=== PATIENT | female | born 1965 | race Caucasian/White ===

== ENCOUNTER 2017-01-13 12:04 | Emergency (ER) | payer OTHER ==
[~2017-01-13] VITALS: Ht 149.9 cm; Wt 66.0 kg
[~2017-01-13 12:04] MED LIST: ALLEGRA60 MG PO; CALAN120 MG OR; CIPROFLOXACN500 MG PO; FIBER SELECT GUMMIES PO; FLAGYL500 MG PO; FLONASE NASAL50 MCG NAB; LEVAQUIN500 MG; LEXAPRO5 MG PO; LOPRESSOR50 MG; LORTAB 1010 MG PO; MEDROXYPROGESTER5 MG PO; METO50TA52 PO; METRONIDAZOL500 MG PO; PAXIL10 MG OR; SIMVASTATIN20 MG PO; STRESS B COMPLE PO; XANAX0.25 MG PO; ZOCOR20 M1 PO; ZOFRAN ODT4 MG PO; [UNRECOGNIZED DRUG - OTHER]
[2017-01-13] MEDS ORDERED: CEPHALEXIN500 M1 PO (13:21)
[2017-01-13 13:30] VITALS: BP 156/92
== END 2017-01-13 13:30 | disposition home or self-care (01) | DRG 605 ==
LOC: ED 12:04
PROC: 0HQGXZZ Repair Left Hand Skin, External Approach (ICD-10-PCS; principal; 2017-01-13)
DX: S61.215A Laceration without foreign body of left ring finger without damage to nail, initial encounter (principal); E78.5 Hyperlipidemia, unspecified; I10 Essential (primary) hypertension; F32.9 Major depressive disorder, single episode, unspecified; W26.0XXA Contact with knife, initial encounter; Y93.89 Activity, other specified; Y92.000 Kitchen of unspecified non-institutional (private) residence as the place of occurrence of the external cause

== ENCOUNTER 2018-07-24 12:51 | Emergency (ER) | payer OTHER ==
[~2018-07-24] VITALS: Ht 149.9 cm; Wt 68.0 kg
[~2018-07-24 12:51] MED LIST changes: +CEPHALEXIN500 M1 PO
[2018-07-24 13:52] LABS: HEMATOCRIT 42.8 % (37.0-47.0); HEMOGLOBIN 14.7 g/dl (12.0-16.0); IMMATURE GRANULOCYTES 2.2 % (0.0-5.0); MEAN CELL VOLUME 84.9 fL CALC (80.0-100.0); MEAN CORPUSCULAR HGB 29.2 pG CALC (26.0-32.0); MEAN CORPUSCULAR HGB CONC 34.3 g/L CALC (32.0-36.0); NEUT# 13.4 thou/uL (2.00-7.15); RED BLOOD COUNT 5.04 mill/uL (4.20-5.60); RED CELL DISTRI WIDTH 12.5 % (11.5-15.5)
[2018-07-24] MEDS ORDERED: TAMOXIFEN CITRA10 MG PO (13:54)
[2018-07-24 14:06] LABS: ALBUMIN 4.3 g/dL (3.2-5.0); ALKALINE PHOSPHATASE 56 u/l (38-126); BILIRUBIN, TOTAL 0.5 mg/dL (0.0-1.4); BUN 11 mg/dL (7-17); BUN/CREATININE RATIO 17 (12-20 (CALC)); CHLORIDE 104 mmol/l (95-108); CREATININE 0.6 mg/dL (0.5-1.0); GFR > 60 ML/MIN (>=60 (CALC)); GFR FOR AFR.AMER. > 60 ML/MIN (>=60 (CALC)); POTASSIUM 4.2 mmol/l (3.5-5.1); SGOT/AST 26 u/l (14-36); SODIUM 139 mmol/l (137-146); TOTAL PROTEIN 7.1 g/dL (6.3-8.2)
[2018-07-24 14:10] LABS: ANION GAP 17 (6-22 (CALC)); CARBON DIOXIDE 22 mmol/l (22-30)
[2018-07-24] MEDS ORDERED: METRONIDAZOL500 MG PO (17:53)
[2018-07-24] MEDS ORDERED: BENTYL10 MG PO (17:53)
[2018-07-24] MEDS ORDERED: TORADOL PO (17:53)
[2018-07-24] MEDS ORDERED: CIPROFLOXACN500 MG PO (17:53)
[2018-07-24 17:59] VITALS: BP 156/70
== END 2018-07-24 18:08 | disposition home or self-care (01) | DRG 392 ==
LOC: ED 12:51
PROVIDERS: Emergency Medicine
DX: K57.32 Diverticulitis of large intestine without perforation or abscess without bleeding (principal); R11.2 Nausea with vomiting, unspecified; R50.9 Fever, unspecified

== ENCOUNTER 2021-07-30 08:38 | Day surgery (SDC) | payer OTHER ==
[~2021-07-30] VITALS: Ht 149.9 cm; Wt 66.7 kg
[~2021-07-30 08:38] MED LIST changes: +BENTYL10 MG PO; +MULTI VIT PO; +TAMOXIFEN CITRA10 MG PO; +TORADOL PO; +VITAMIN B-12500 MCG PO
[2021-07-30 11:18] VITALS: BP 137/75
== END 2021-07-30 11:36 | disposition home or self-care (01) | DRG 951 ==
LOC: ENDO 08:38 → ORM 11:00 → ENDO 11:36
PROVIDERS: ATTEND Surgery
PROC: 0DJD8ZZ Inspection of Lower Intestinal Tract, Via Natural or Artificial Opening Endoscopic (ICD-10-PCS; principal; 2021-07-30)
DX: Z12.11 Encounter for screening for malignant neoplasm of colon (principal); K57.30 Diverticulosis of large intestine without perforation or abscess without bleeding; I10 Essential (primary) hypertension; E78.5 Hyperlipidemia, unspecified; Z86.010 Personal history of colon polyps

== ENCOUNTER 2023-03-08 02:06 | Observation (INO) | payer OTHER ==
[~2023-03-08] VITALS: Ht 149.9 cm; Wt 68.6 kg
[2023-03-08] VITALS (8 sets, daily range): BP systolic 134–142; BP diastolic 60–75
[2023-03-08 03:05] LABS: BASO% 0.1 % (0-3); EOS% 1.2 % (0-8); HEMATOCRIT 40.3 % (37.0-47.0); HEMOGLOBIN 13.7 g/dl (12.0-16.0); IMMATURE GRANULOCYTES 0.3 % (0.0-5.0); LYMPH% 16.1 % (15-41); MEAN CELL VOLUME 87.6 fL CALC (80.0-100.0); MEAN CORPUSCULAR HGB 29.8 pG CALC (26.0-32.0); MONO% 5.6 % (2-13); NEUT# 10.51 thou/uL (2.00-7.15); NEUT% 76.7 % (42-76); RED BLOOD COUNT 4.6 mill/uL (4.20-5.60); RED CELL DISTRI WIDTH 12.1 % (11.5-15.5)
[2023-03-08 04:32] LABS: ALBUMIN 4.3 g/dL (3.2-5.0); ALKALINE PHOSPHATASE 57 u/l (38-126); ANION GAP 13 (6-22 (CALC)); BILIRUBIN, TOTAL 0.7 mg/dL (0.02-1.3); BUN 10 mg/dL (7-17); BUN/CREATININE RATIO 16 (12-20 (CALC)); CARBON DIOXIDE 22 mmol/l (22-30); CHLORIDE 106 mmol/l (95-108); CREATININE 0.6 mg/dL (0.5-1.0); GFR FOR AFR.AMER. > 60 ML/MIN (>=60 (CALC)); GFR OTHER RACES > 60 ML/MIN (>=60 (CALC)); LIPASE 89 u/l (23-300); POTASSIUM 4.4 mmol/l (3.5-5.1); SGOT/AST 47 u/l (14-36); SODIUM 136 mmol/l (137-146); TOTAL PROTEIN 7.1 g/dL (6.3-8.2)
[2023-03-09 04:53] VITALS: BP 131/77
[2023-03-09 05:01] LABS: HEMATOCRIT 38.3 % (37.0-47.0); HEMOGLOBIN 12.5 g/dl (12.0-16.0); MEAN CELL VOLUME 90.5 fL CALC (80.0-100.0); MEAN CORPUSCULAR HGB 29.6 pG CALC (26.0-32.0); MEAN CORPUSCULAR HGB CONC 32.6 g/dL CAL (32.0-36.0); RED BLOOD COUNT 4.23 mill/uL (4.20-5.60); RED CELL DISTRI WIDTH 12.1 % (11.5-15.5)
[2023-03-09 05:18] LABS: ALKALINE PHOSPHATASE 49 u/l (38-126); BILIRUBIN, TOTAL 0.6 mg/dL (0.02-1.3); BUN 7 mg/dL (7-17); BUN/CREATININE RATIO 11 (12-20 (CALC)); CHLORIDE 109 mmol/l (95-108); CREATININE 0.7 mg/dL (0.5-1.0); GFR FOR AFR.AMER. > 60 ML/MIN (>=60 (CALC)); GFR OTHER RACES > 60 ML/MIN (>=60 (CALC)); MAGNESIUM 2.1 mg/dL (1.6-2.3); POTASSIUM 4.2 mmol/l (3.5-5.1); SGOT/AST 27 u/l (14-36); SODIUM 140 mmol/l (137-146)
[2023-03-09 05:23] LABS: ALBUMIN 3.1 g/dL (3.2-5.0); ANION GAP 8 (6-22 (CALC)); CARBON DIOXIDE 27 mmol/l (22-30); TOTAL PROTEIN 5.4 g/dL (6.3-8.2)
[2023-03-09 07:17] VITALS: BP 118/69
[2023-03-09 09:43] VITALS: BP 144/68
[2023-03-09 09:44] VITALS: BP 144/68
[2023-03-09] MEDS ORDERED: CIPROFLOXACN500 MG PO (10:16)
[2023-03-09] MEDS ORDERED: METRONIDAZOLE IV (10:17)
[2023-03-09] MEDS ORDERED: METRONIDAZOLE500 MG PO (13:16)
== END 2023-03-09 14:04 | disposition home or self-care (01) | DRG 392 ==
LOC: ED 02:06 → ED-I 05:20 → ED 05:40 → MS2 05:41 → ED-I 05:41 → MS2 07:46
PROVIDERS: Family Medicine; Student in an Organized Health Care Education/Training Program; ADMIT Internal Medicine; ATTEND Internal Medicine
DX: K57.32 Diverticulitis of large intestine without perforation or abscess without bleeding (principal); I10 Essential (primary) hypertension; E78.5 Hyperlipidemia, unspecified; Z85.3 Personal history of malignant neoplasm of breast; Z92.3 Personal history of irradiation; Z79.810 Long term (current) use of selective estrogen receptor modulators (SERMs)
CPT/HCPCS: G0378; S0164